=== PATIENT | male | born 1965 | race Caucasian/White ===

== ENCOUNTER 2018-01-05 20:15 | Emergency (ER) | payer OTHER ==
[~2018-01-05] VITALS: Ht 180.3 cm; Wt 108.9 kg
[2018-01-05] MEDS ORDERED: METFORMIN HCL1000 M1 PO (20:36)
== END 2018-01-05 21:22 | disposition home or self-care (01) ==
LOC: ER 20:15
DX: N49.2 Inflammatory disorders of scrotum (principal); L02.818 Cutaneous abscess of other sites; B95.61 Methicillin susceptible Staphylococcus aureus infection as the cause of diseases classified elsewhere